=== PATIENT | female | born 1960 | race Caucasian/White ===

== ENCOUNTER 2022-03-08 18:35 | Outpatient (CLI) | payer OTHER, SELFPAY | END 2022-03-08 18:36 | disposition home or self-care (01) | LOC: LKVREF 03-13 15:30 | PROVIDERS: Visit Provider Student in an Organized Health Care Education/Training Program | DX: R35.0 Frequency of micturition (principal); R30.0 Dysuria; N39.0 Urinary tract infection, site not specified | CPT/HCPCS: 87086; 87186 ==